=== PATIENT | female | born 1990 | race Asian ===

== ENCOUNTER → 2018-10-26 | Outpatient (CLI) | payer OTHER ==
[~2018-10-26] MED LIST: IOPAMIDOL (ISOVUE-300) 100 ML BTL ONE
== END ==
LOC: FIMAGING 15:16
PROVIDERS: ATTEND Internal Medicine Pulmonary Disease
DX: A15.9 Respiratory tuberculosis unspecified (principal); R04.2 Hemoptysis; J47.9 Bronchiectasis, uncomplicated
CPT/HCPCS: Q9967

== ENCOUNTER 2018-12-01 08:39 | Emergency (ER) | payer OTHER | END 2018-12-01 09:56 | disposition home or self-care (01) ==

== ENCOUNTER 2018-12-07 07:41 | Day surgery (SDC) | payer OTHER | END 2018-12-07 11:44 | disposition home or self-care (01) | LOC: FSGY 07:41 ==